=== PATIENT | female | born 1975 | race Caucasian/White ===

== ENCOUNTER 2017-08-27 19:44 | Emergency (ER) | payer SELFPAY ==
--- NOTE | 2017-08-27 20:37 | RAD ---
SINGLE VIEW OF THE CHEST 08/27/17 COMPARISON: None. HISTORY: Fever and cough for one day. FINDINGS: Single view of the chest shows a normal sized cardiomediastinal silhouette. There is no evidence of c onsolidation, mass, or pleural effusion. The bones are unremarkable. IMPRESSION: No evidence of acute cardiopulmonary disease. POS: [facility]
[2017-08-27] MEDS ORDERED: Dexamethasone 4 mg/ml Vial ONE (20:49)
== END 2017-08-27 22:25 | disposition home or self-care (01) ==
LOC: ERS 19:44
DX: J02.9 Acute pharyngitis, unspecified (principal); J45.909 Unspecified asthma, uncomplicated; F41.9 Anxiety disorder, unspecified; F32.9 Major depressive disorder, single episode, unspecified; F43.10 Post-traumatic stress disorder, unspecified; Z87.891 Personal history of nicotine dependence; Z79.899 Other long term (current) drug therapy
CPT/HCPCS: 71045; 87081; 87430; J1100

== ENCOUNTER 2018-02-13 06:33 | Emergency (ER) | payer SELFPAY ==
[2018-02-13] MEDS ORDERED: Propofol 500 MG/50 ML VIAL ONE (06:57)
--- NOTE | 2018-02-13 07:58 | RAD ---
PORTABLE LEFT SHOULDER 1 VIEW: Date: 02/13/18 HISTORY: Left shoulder pain. FINDINGS/IMPRESSION: There is anterior dislocation at the glenohumeral joint. POS: [facility]
--- NOTE | 2018-02-13 08:16 | RAD ---
LEFT SHOULDER 2 VIEWS: HISTORY: Left shoulder dislocation, status post reduction. FINDINGS/IMPRESSION: There has been interval reduction of the anterior dislocation noted on earlier exam of 6:50 a.m. Ankita tomic alignment has been restored. POS: [facility]
== END 2018-02-13 07:49 | disposition home or self-care (01) ==
LOC: ERS 06:33
DX: S43.015A Anterior dislocation of left humerus, initial encounter (principal); F41.9 Anxiety disorder, unspecified; F32.9 Major depressive disorder, single episode, unspecified; F90.9 Attention-deficit hyperactivity disorder, unspecified type; Z79.899 Other long term (current) drug therapy; Z87.891 Personal history of nicotine dependence; J45.909 Unspecified asthma, uncomplicated; X50.1XXA Overexertion from prolonged static or awkward postures, initial encounter
CPT/HCPCS: 23650; 96360; 99152; 99153; J2704

== ENCOUNTER 2018-06-02 15:54 | Outpatient (CLI) | payer MEDICAID ==
--- NOTE | 2018-06-03 14:59 | MMO ---
MAMMOGRAM FINDINGS: There are scattered fibroglandular densities. There are two focal asymmetries seen in the upper-outer region of the right breast. IMPRESSION: FOCAL ASYMMETRIES IN THE RIGHT BREAST REQUIRE ADDITIONAL EVALUATION. SPOT COMPRESSION IS RECOMMENDED. AN ULTRASOUND EXAM IS RECOMMENDED IF NEEDED. ACR BI-RADS Category 0 - Incomplete: Need additional imaging evaluation. [facility] will notify the patient of the need for additional imaging services.
== END 2018-06-02 15:55 | disposition home or self-care (01) ==
LOC: BICMAMMO 15:54
PROVIDERS: ATTEND Internal Medicine
DX: Z12.31 Encounter for screening mammogram for malignant neoplasm of breast (principal); N64.89 Other specified disorders of breast
CPT/HCPCS: 77067

== ENCOUNTER 2018-06-05 12:19 | Outpatient (CLI) | payer MEDICAID ==
--- NOTE | 2018-06-05 14:15 | MMO ---
Right Breast MAMMO Unilat Diag DDI RT+LADAN. CLINICAL HISTORY: Patient is 42 years old and is seen for additional evaluation requested from prior study. The patient has no family history of breast cancer. The patient has no personal history of cancer. VIEWS: The views performed were: right craniocaudal spot compression; right mediolateral oblique spot compression; and right mediolateral. FILMS COMPARED: The present examination has been compared to prior imaging studies performed at [facility] on 06/02/2018 and 06/05/2018. MAMMOGRAM FINDINGS: There are scattered fibroglandular densities. There is an oval mass with circumscribed margins seen in the right breast at 7 o'clock. Shadowing is seen on ultrasound posterior to the mass. IMPRESSION: MASS IN THE RIGHT BREAST IS SUSPICIOUS. AN ULTRASOUND-GUIDED BREAST BIOPSY IS RECOMMENDED. THE RESULTS OF THIS EXAM WERE SENT TO THE PATIENT. ACR BI-RADS Category 4 - Suspicious abnormality - biopsy should be considered MAMMOGRAPHY NOTE: 1. A negative mammogram report should not delay a biopsy if a dominant of clinically suspicious mass is present. 2. Approximately 10% to 15% of breast cancers are not detected by mammography. 3. Adenosis and dense breasts may obscure an underlying neoplasm.
--- NOTE | 2018-06-05 15:18 | ULT ---
RIGHT BREAST ULTRASOUND: Date: 06/05/18 HISTORY: 42-year-old female with an asymmetry that persists on mammography in the lower outer aspect of the ri ght breast. TECHNIQUE: Multiplanar Pelaez scale and color Doppler images were obtained in a right breast ultrasound. FINDINGS: In the 7 o'clock position of the right breast, approximately 9.0 cm from the nipple, there is a hypoe choic mass which appears fairly well circumscribed. However, there is posterior shadowing behind the mass. The mass measures 1.3 cm in greatest dimension and corresponds to the mammographic abnormality. IMPRESSION: BIRADS Category 4 - Suspicious. An ultrasound guided right breast mass biopsy is recommended. POS: [facility]
== END 2018-06-05 12:20 | disposition home or self-care (01) ==
LOC: BICMAMMO 12:19
PROVIDERS: ATTEND Internal Medicine
DX: N64.89 Other specified disorders of breast (principal); N63.13 Unspecified lump in the right breast, lower outer quadrant
CPT/HCPCS: G0279

== ENCOUNTER → 2018-06-12 | Day surgery (SDC) | payer MEDICAID ==
--- NOTE | 2018-06-12 14:52 | ULT ---
ULTRASOUND GUIDED RIGHT BREAST BIOPSY: DATE: 06/12/2018. PROVIDED CLINICAL HISTORY: Right breast mass. FINDINGS: Correlation was made with the studies dated 06/05/2018. Informed consent was obtained from the patient . The patient was placed on the sonography table in the supine position and the 7 o'clock breast les ion was relocalized. The skin overlying this region was marked, prepped and draped in the usual ster ile manner, and the soft tissues were anesthetized with 1% buffered Lidocaine. Under continuous sono graphic guidance, a 14 gauge core biopsy device was utilized to obtain 6 core samples from the lesion . Subsequently, continuous sonographic guidance was utilized to deploy a biopsy clip within the mass . The needles were removed and hemostasis achieved. No immediate complications. Post biopsy mammog carmina demonstrates appropriate clip deployment. IMPRESSION: Technically successful right breast biopsy. Please correlate with histology results to follow. POS: [facility]
--- NOTE | 2018-06-12 18:23 | MMO ---
Right Breast MAMMO Unilat Diag DDI RT. CLINICAL HISTORY: Patient is 42 years old and is seen for diagnostic exam. The patient has no family history of breast cancer. The patient has no personal history of cancer. The patient has a history of right Ultrasound Guided Core Biopsy in May,. VIEWS: The views performed were: right craniocaudal and right mediolateral oblique. FILMS COMPARED: The present examination has been compared to prior imaging studies performed at [facility] on 06/02/2018 and 06/05/2018. MAMMOGRAM FINDINGS: The breast is heterogeneously dense, which could obscure a lesion on mammography. A biopsy clip is seen in the right breast. IMPRESSION: FINDING IN THE RIGHT BREAST IS CONFIRMED UTILIZING POST PROCEDURE MAMMOGRAM. THE RESULTS OF THIS EXAM WERE SENT TO THE PATIENT. MAMMOGRAPHY NOTE: 1. A negative mammogram report should not delay a biopsy if a dominant of clinically suspicious mass is present. 2. Approximately 10% to 15% of breast cancers are not detected by mammography. 3. Adenosis and dense breasts may obscure an underlying neoplasm.
== END ==
LOC: BICULT 12:28
PROVIDERS: ATTEND Internal Medicine
PROC: 0HBT3ZX Excision of Right Breast, Percutaneous Approach, Diagnostic (ICD-10-PCS; principal; 2018-06-12)
DX: D24.1 Benign neoplasm of right breast (principal); Z88.4 Allergy status to anesthetic agent
CPT/HCPCS: 19083; 88305; C1713

== ENCOUNTER 2021-09-13 09:34 | Outpatient (CLI) | payer OTHER ==
[2021-09-13] MEDS ORDERED: Iopamidol 300 61% 30 ML VIAL ONE ×2 (10:22)
[2021-09-13] MEDS ORDERED: Lidocaine 1% PF 5 ML VIAL ONE (10:22)
[2021-09-13] MEDS ORDERED: Gadobenate Dimeglumine 529 MG/1 ML (20ML VIAL) ONE (10:22)
== END 2021-09-13 09:35 | disposition home or self-care (01) ==
LOC: RAD 09:34
PROVIDERS: ATTEND Orthopaedic Surgery
DX: S43.005A Unspecified dislocation of left shoulder joint, initial encounter (principal); S43.402A Unspecified sprain of left shoulder joint, initial encounter; S43.432A Superior glenoid labrum lesion of left shoulder, initial encounter; M21.922 Unspecified acquired deformity of left upper arm; M75.112 Incomplete rotator cuff tear or rupture of left shoulder, not specified as traumatic
CPT/HCPCS: 23350; A9577; Q9967